=== PATIENT | female | born 1985 | race Caucasian/White ===

== ENCOUNTER 2016-11-02 09:49 | Outpatient (CLI) | payer OTHER ==
[~2016-11-02] VITALS: Ht 160 cm; Wt 70.1 kg
[2016-11-02 10:06] VITALS: Ht 160 cm; Wt 70.1 kg
[2016-11-02 10:07] VITALS: BP 116/63; PULSE 97; RESP 18
--- NOTE | 2016-11-02 12:47 | RADRPT ---
PROCEDURE: Limited OB ultrasound CLINICAL INDICATION: Decreased movement TECHNIQUE: Sonographic evaluation to assess the ANGELICA was performed. Transabdominal imaging of the gravid uterus was performed. COMPARISON: No prior exam is available for comparison. FINDINGS: There is a single live intrauterine with a heart rate of 154 bpm. position is cephalic. The placenta is anterior. The ANGELICA measures 15.1 cm. IMPRESSION: The ANGELICA measures 15.1 cm. RPTAT: HH .Emily Dasilva MD, MD Date Time Electronically viewed and signed by .Emily Dasilva MD, MD on 11/02/2016 12:46 .G/
[2016-11-02] MEDS ORDERED: PRENAT PO (12:57)
--- NOTE | 2016-11-02 15:39 | TRIAGE ---
OB Triage Datetime Report Generated by CPN: 11/02/2016 15:38 Datetime: 11/02/2016 11:43 Comments: MD ARDALAN COLLECTED ROM PLUS COLLECTION Datetime: 11/02/2016 11:42 Vaginal Exam Membrane Status: Intact Pool: Negative Datetime: 11/02/2016 10:30 Maternal Assessment Level of Consciousness: Fully Conscious DTR's/Clonus: DTRs 2+; No Clonus Headache: Denies Blurred Vision: No Respiratory Effort: Unlabored; Regular Rhythm; Equal Expansion Breath Sounds, Left: Clear and Equal Breath Sounds, Right: Clear and Equal Nausea/Vomiting: Denies RUQ Epigastric Pain: Denies Facial Edema: None Fall Risk Assessment History of Falling: (0) No Secondary Diagnosis: (0) No Ambulatory Aid: (0) Bedrest/Nurse Assist IV Therapy: (0) No Gait: (0) Normal/Bedrest/Immobile Mental Status: (0) Oriented to Own Ability Fall Score: 0 Fall Risk Score Definition: No Risk: No action required Datetime: 11/02/2016 10:00 Stage of : OB Triage Assessment Type: Triage Maternal Assessment Level of Consciousness: Fully Conscious DTR's/Clonus: DTRs 2+; No Clonus Headache: Denies Blurred Vision: No Respiratory Effort: Unlabored; Regular Rhythm; Equal Expansion Breath Sounds, Left: Clear and Equal Breath Sounds, Right: Clear and Equal Nausea/Vomiting: Denies RUQ Epigastric Pain: Denies Lower Extremities Edema: None Degree: None Upper Extremities Edema: None Degree: None Facial Edema: None Temperature Route: Axillary Fall Risk Assessment History of Falling: (0) No Secondary Diagnosis: (0) No Ambulatory Aid: (0) Bedrest/Nurse Assist IV Therapy: (0) No Gait: (0) Normal/Bedrest/Immobile Mental Status: (0) Oriented to Own Ability Fall Score: 0 Fall Risk Score Definition: No Risk: No action required Heart Rate Monitor Mode: External US Variability: Moderate 6-25 bpm Accelerations: None Decelerations: None Comments: DOPPLERS PERFORMED AUDIBLE FHR 150'S PRESENT Pain Assessment Pain Scale: 0 Pain Presence: None/Denies Pain Type: N/A Datetime: 11/02/2016 09:55 Time of Arrival: 11/02/2016 09:44 EGA: 21.6 Arrived By: Ambulatory Arrived From: Home Chief Complaint: DECREASED FM Movement: Absent Contractions: Denies/Absent Rupture of Membranes: Denies Vaginal Bleeding: None Vaginal Discharge: Denies Recent Sexual Intercouse: Denies Abdominal Trauma: Not Applicable Patient Complaints: None Time Provider Notified: 11/02/2016 11:20 Provider Notified: DR. YEH Initial Plan: NST , ROM PLUS, ANGELICA
== END 2016-11-02 14:57 | disposition home or self-care (01) ==
LOC: OBT 09:49 → L-D 09:50 → OBT 14:57
PROVIDERS: ATTEND Obstetrics & Gynecology
DX: O36.8120 Decreased fetal movements, second trimester, not applicable or unspecified (principal); Z3A.21 21 weeks gestation of pregnancy
CPT/HCPCS: 76815; 84112; Z7500; G0463

== ENCOUNTER 2017-02-09 22:28 | Outpatient (CLI) | payer OTHER ==
--- NOTE | 2016-11-02 15:46 | QN ---
Documentation Comment 31 years old with IUP at 21 weeks and 6 days here for decreased movement. she denies vaginal bleeding or contractions, she reports had some small amount of leaking. GA: A&O, NAD Abdomen: soft, non tender, Fundal height consistent with GA Extremities: No calf tenderness, no cord palpable SSE: No pooling with valsalva maneuver. Negative ROM test PROCEDURE: Limited OB ultrasound CLINICAL INDICATION: Decreased movement TECHNIQUE: Sonographic evaluation to assess the ANGELICA was performed. Transabdominal imaging of the gravid uterus was performed. COMPARISON: No prior exam is available for comparison. FINDINGS: There is a single live intrauterine with a heart rate of 154 bpm. position is cephalic. The placenta is anterior. The ANGELICA measures 15.1 cm. IMPRESSION: The ANGELICA measures 15.1 cm. RPTAT: HH Assessment: 1. IUP at 21 weeks and 6 days Doing well No evidence of PTL or PPROM Patient reassured. PTL precaution Follow up with her OB clinic in 2-3 days RT to L&D PRN any other symptoms SORAIDA CÁRDENAS MD Nov 02, 2016 15:45
[~2017-02-09] VITALS: Ht 160 cm; Wt 78.0 kg
[~2017-02-09 22:28] MED LIST: PRENAT PO
[2017-02-09 22:33] VITALS: Ht 160 cm; Wt 78.0 kg
[2017-02-09 22:50] VITALS: BP 112/61; PULSE 86; RESP 18
[2017-02-10 00:13] LABS: ADD UMIC YES; UR BILIRUBIN (Dip) NEGATIVE (NEGATIVE); UR BLOOD (Dip) NEGATIVE (NEGATIVE); UR CLARITY CLEAR (CLEAR); UR COLOR LT. YELLOW (YELLOW); UR GLUCOSE (Dip) NEGATIVE (NEGATIVE); UR KETONES (Dip) NEGATIVE (NEGATIVE); UR LEUKOCYTE ESTERASE (Dip) 1+ (NEGATIVE); UR NITRITE (Dip) NEGATIVE (NEGATIVE); UR TOTAL PROTEIN (Dip) NEGATIVE (NEGATIVE); UR UROBILINOGEN (Dip) 0.2 E.U./dL (0.1-1.0)
--- NOTE | 2017-02-10 00:28 | RADRPT ---
PROCEDURE: Obstetrical ultrasound, limited. CLINICAL INDICATION: Pelvic pain. TECHNIQUE: Multiple sonographic images of the pelvis were obtained using transabdominal technique . Images were obtained with lovelace scale and color Doppler. Endovaginal evaluation the cervix was al so performed. The images were reviewed on a PACS workstation. COMPARISON: 11/02/2016. FINDINGS: There is a single living intrauterine gestation with the fetus in a vertex presentation. hear t tones of 131 beats per minute are identified. The placenta is anterior in location, grade 2. The cervix is closed measuring 3.7 cm. There is no evidence of placenta previa or abruption. Measurements were made in order to determine age. The results are as follows: BPD =8.94 cm HC =33.19 cm AC =31.03 cm FL =7.03 cm. Estimated gestational age of approximately 36 weeks and 2 days. The estimated date of delivery is 03/07/2017. The EFW = 2740 +/- 411 grams. Estimated weight percentage equals 41.9%. IMPRESSION: Single viable intrauterine gestation of approximately 36 weeks and 2 days, with an ultrasound UZIEL of 03/07/2017. .Ramiro Hameed MD, MD Date Time Electronically viewed and signed by .Ramiro Hameed MD, MD on 02/10/2017 00:28 .T/
[2017-02-10 00:56] LABS: UR BACTERIA MODERATE; UR SQUAMOUS EPITHELIAL CELL FEW; URINE RBCS 0-2 /HPF (0)
--- NOTE | 2017-02-10 02:28 | TRIAGE ---
OB Triage Datetime Report Generated by CPN: 02/10/2017 02:27 Datetime: 02/10/2017 02:00 Stage of : OB Triage Labor Evaluation Frequency: 2-8 Monitor Mode: External Duration (sec)2399: 60-80 Quality: Mild Pattern: Normal: <= 5 Contractions in 10 Minutes Resting Tone [place]: Relaxed Heart Rate FHR Baseline Rate: 135 Monitor Mode: External US Variability: Moderate 6-25 bpm Accelerations: 15X15 Decelerations: None Category: Category I Datetime: 02/10/2017 01:10 Stage of : OB Triage Labor Evaluation Frequency: 2.5-4 Monitor Mode: External Duration (sec)2399: 60-80 Quality: Mild Pattern: Normal: <= 5 Contractions in 10 Minutes Resting Tone [place]: Relaxed Heart Rate FHR Baseline Rate: 135 Monitor Mode: External US Variability: Moderate 6-25 bpm Accelerations: 15X15 Decelerations: None Category: Category I Datetime: 02/10/2017 00:10 Stage of : OB Triage Labor Evaluation Frequency: 2-5.5 Monitor Mode: External Duration (sec)2399: 60-80 Quality: Mild Pattern: Normal: <= 5 Contractions in 10 Minutes Resting Tone [place]: Relaxed Heart Rate FHR Baseline Rate: 135 Monitor Mode: External US Variability: Moderate 6-25 bpm Accelerations: 15X15 Decelerations: None Category: Category I Pain Assessment Pain Scale: 7 Pain Presence: Constant Pain Type: Cramping; Pressure Pain Location: Abdomen; Perineum Pain Goal: 5 Pain Relief Measures: Comfort Measures Datetime: 02/09/2017 23:10 Stage of : OB Triage Temperature Route: Oral Labor Evaluation Frequency: 3-5 Monitor Mode: External Duration (sec)2399: 60-120 Quality: Moderate Pattern: Normal: <= 5 Contractions in 10 Minutes Resting Tone [place]: Relaxed Heart Rate FHR Baseline Rate: 130 Monitor Mode: External US Variability: Moderate 6-25 bpm Accelerations: 15X15 Decelerations: None Category: Category I Pain Assessment Pain Scale: 7 Pain Presence: Constant Pain Type: Cramping; Pressure Pain Location: Abdomen; Perineum Pain Goal: 5 Pain Relief Measures: Comfort Measures Datetime: 02/09/2017 23:00 Vaginal Exam Dilatation (cms): 0.0 Effacement (%): 70 Station: -2 Exam By: ISA Vaginal Bleeding: None Cervix, Consistency: Moderate Cervix, Position: Posterior Datetime: 02/09/2017 22:48 Assessment Type: Triage Maternal Assessment Level of Consciousness: Fully Conscious DTR's/Clonus: DTRs 2+; No Clonus Headache: Denies Blurred Vision: No Respiratory Effort: Unlabored; Regular Rhythm; Equal Expansion Breath Sounds, Left: Clear and Equal Breath Sounds, Right: Clear and Equal Nausea/Vomiting: Denies RUQ Epigastric Pain: Denies Lower Extremities Edema: None Upper Extremities Edema: None Facial Edema: None Fall Risk Assessment History of Falling: (0) No Secondary Diagnosis: (0) No Ambulatory Aid: (0) Bedrest/Nurse Assist IV Therapy: (0) No Gait: (0) Normal/Bedrest/Immobile Mental Status: (0) Oriented to Own Ability Fall Score: 0 Fall Risk Score Definition: No Risk: No action required Datetime: 02/09/2017 22:35 Time of Arrival: 02/09/2017 22:20 EGA: 36.0 Arrived By: Wheelchair Arrived From: Home Chief Complaint: VAGINAL PRESSURE ALL DAY AND PAIN TODAY Movement: Present Contractions: Irregular Rupture of Membranes: Denies Vaginal Bleeding: None Vaginal Discharge: Denies Recent Sexual Intercouse: Denies Abdominal Trauma: Not Applicable Patient Complaints: None Additional Patient Complaints: IN DR'S OFFICE YESTERDAY WITH VAG. PRESSURE, BUT NO PAIN Time Provider Notified: 02/09/2017 22:55 Provider Notified: CHRIS Initial Plan: EFM Datetime: 11/02/2016 10:30 Fall Score: 0 Fall Risk Score Definition: No Risk: No action required Datetime: 11/02/2016 10:00 Fall Score: 0 Fall Risk Score Definition: No Risk: No action required Datetime: 11/02/2016 09:55 EGA: 21.6
--- NOTE | 2017-02-10 06:48 | PN ---
Triage Information Date/Time 02/10/17 0150 Weeks of Gestation 36w : 2 Para: 0 Diabetes: none Hypertention: none Additional information vaginal pressure all day become worse 2129 Objective EFM u.c 3-5min VE closed 70% -2 intact initial re exam 3hrs later no change by same nurse Vital Signs Date Time Temp Pulse Resp B/P Pulse Ox O2 Delivery O2 Flow Rate FiO2 02/09/17 22:50 98.4 86 18 112/61 Room Air Heart Rate: 130's Contractions: < 5 Minutes Apart Results/Medications Results 24 hrs Laboratory Tests Test 02/09/17 22:40 Urine Color LT. YELLOW Urine Clarity CLEAR Urine pH 7.0 Urine Specific [place] 1.010 Urine Ketones NEGATIVE Urine Nitrite NEGATIVE Urine Bilirubin NEGATIVE Urine Urobilinogen 0.2 E.U./dL Urine Leukocyte Esterase 1+ H Urine Microscopic RBC 0-2 Urine Microscopic WBC 2-5 Urine Squamous Epithelial Cells FEW Urine Bacteria MODERATE Urine Hemoglobin NEGATIVE Urine Glucose NEGATIVE Urine Total Protein NEGATIVE Imaging Results cvl 3,7 efw 2740gm Assessment/Plan IUP 36w NIL Plan d/s home with routine labor instructions REKHA PEREZ MD Feb 10, 2017 06:47
== END 2017-02-10 02:13 | disposition home or self-care (01) ==
LOC: L-D 22:28 → OBT 22:28
PROVIDERS: ATTEND Obstetrics & Gynecology
DX: O26.893 Other specified pregnancy related conditions, third trimester (principal); R10.2 Pelvic and perineal pain; Z3A.36 36 weeks gestation of pregnancy
CPT/HCPCS: 76815; 76817; 81001; Z7500; G0463

== ENCOUNTER 2017-02-26 21:12 | Inpatient (IN) | payer OTHER ==
[~2017-02-26] VITALS: Ht 160 cm; Wt 79.3 kg
[2017-02-26 21:44] VITALS: BP 112/65; PULSE 93; RESP 18; Ht 160 cm; Wt 79.3 kg
[2017-02-26] MEDS ORDERED: LIDOCAINE 1% (MPF) 30 ML INJ INJ PRN (23:00)
[2017-02-26] MEDS ORDERED: CARBOPROST 250 MCG INJ IM PRN (23:00)
[2017-02-26] MEDS ORDERED: IBUPROFEN 600 MG TAB PO PRN (23:00)
[2017-02-26] MEDS ORDERED: BUTORPHANOL 2 MG INJ IV PRN (23:00)
[2017-02-26] MEDS ORDERED: OXYTOCIN 30 UNITS/LR 500 ML IV SCH ×2 (23:00)
[2017-02-26] MEDS ORDERED: METHYLERGONOVINE 0.2 MG INJ IM PRN (23:00)
[2017-02-26] MEDS ORDERED: OXYTOCIN 30 UNITS/LR 500 ML IV PRN (23:00)
[2017-02-26] MEDS ORDERED: MISOPROSTOL 200 MCG TAB PR PRN (23:00)
--- NOTE | 2017-02-26 23:06 | HP ---
Date/Time of Note Date/Time of Note DATE: 02/26/17 TIME: 23:02 OB - History Hx of Present Free Text/Dictation 31 YO with IUP at 38.3 weeks who presents to L&D for possible ROM and irregular UCs. on her arrival she had 3 late Decelerations on NST. her ANGELICA is 5.7 cm. Care: Good Care Ultrasounds: Normal mid trimester US Obstetrical Complications: None Medical Complications: None Past Family/Social History * Past Medical, Surgical, Family and Obstetric Histories reviewed from chart. OB Admission Exam Vital Signs Vital Signs Vital Signs Date Time Temp Pulse Resp B/P Pulse Ox O2 Delivery O2 Flow Rate FiO2 02/26/17 21:44 98.3 93 18 112/65 Room Air Physical Exam HEENT: WNL Heart: Rhythm Normal Lungs: Clear, Equal Abdomen: WNL Extremities: Normal Reflexes: Normal Cervical Dilatation: Fingertip OB Assessment/Plan Other Assessment: oligo and possible SROM, although RN did not noticed any pooling on SSE she initially had 3 late decels. NST is reassuring at this time. Other plan: admit for IV hydration and IOL. patient agreed KRISTIN THAKUR MD Feb 26, 2017 23:06
[2017-02-26] MEDS: LACTATED RINGER'S 1,000 ML IV SCH (23:11)
--- NOTE | 2017-02-26 23:27 | RADRPT ---
PROCEDURE: OB ultrasound for biophysical profile CLINICAL INDICATION: . labor. Leaking fluid. TECHNIQUE: Multiple sonographic images of the pelvis were obtained. Transabdominal view of the gr avid uterus are available for review. The images were reviewed on a PACS workstation. COMPARISON: 02/10/2017 FINDINGS: breathing movement = 2/2 tone = 2/2 motion = 2/2 ANGELICA = 0/2 ANGELICA = 5.7 cm Single live intrauterine with cardiac activity. Heart rate equals 152 bpm. IMPRESSION: 1. Single viable intrauterine gestation. 2. Biophysical profile = 6/8. 3. ANGELICA = 5.7 cm. This is likely due to ruptured membranes, given the provided history. RPTAT: HLDM .Elliott Huerta MD, Date Time Electronically viewed and signed by .Elliott Huerta MD, on 02/26/2017 23:27 .M/
[2017-02-27 00:01] LABS: BASOPHILS % 0.2 % (0.0-2.0); EOSINOPHILS # 0.1 10^3/ul (0.0-0.5); EOSINOPHILS % 0.7 % (0.0-7.0); HEMATOCRIT 36.7 % (37.0-47.0); HEMOGLOBIN 11.9 g/dl (12.0-16.0); LYMPHOCYTES # 1.9 10^3/ul (0.8-2.9); LYMPHOCYTES % 19.4 % (15.0-51.0); MEAN CORPUSCULAR HEMOGLOBIN 28.5 pg (29.0-33.0); MEAN CORPUSCULAR HGB CONC 32.4 g/dl (32.0-37.0); MEAN PLATELET VOLUME 10.5 fl (7.4-10.4); MONOCYTE # 0.7 10^3/ul (0.3-0.9); MONOCYTES % 6.6 % (0.0-11.0); NEUTROPHILS % 69.9 % (39.0-77.0); NUCLEATED RED BLOOD CELLS% 0.2 /100WBC (0.0-0.0); PLATELET COUNT 200 10^3/UL (140-415); RED BLOOD COUNT 4.17 10^6/ul (4.20-5.40); RED CELL DISTRIBUTION WIDTH 14.6 % (11.5-14.5)
[2017-02-27 00:19] LABS: INR 0.98
[2017-02-27 00:20] LABS: PARTIAL THROMBOPLASTIN TIME 29.6 Sec (25.0-35.0)
[2017-02-27 00:25] LABS: ADD SCAN DIFF NO
[2017-02-27 00:45] LABS: ADD UMIC YES; UR ASCORBIC ACID NEGATIVE (NEGATIVE); UR BACTERIA FEW /HPF (NONE SEEN); UR BILIRUBIN (Dip) NEGATIVE (NEGATIVE); UR BLOOD (Dip) NEGATIVE (NEGATIVE); UR CLARITY CLEAR (CLEAR); UR COLOR YELLOW (YELLOW); UR GLUCOSE (Dip) NEGATIVE (NEGATIVE); UR KETONES (Dip) NEGATIVE (NEGATIVE); UR LEUKOCYTE ESTERASE (Dip) TRACE Leu/ul (NEGATIVE); UR MUCUS FEW /HPF (NONE SEEN); UR NITRITE (Dip) NEGATIVE (NEGATIVE); UR RBC 1 /HPF (0-5); UR SPECIFIC GRAVITY (Dip) 1.012 (1.003-1.030); UR TOTAL PROTEIN (Dip) NEGATIVE (NEGATIVE); UR UROBILINOGEN (Dip) NEGATIVE (NEGATIVE)
[2017-02-27 00:52] LABS: BARBITURATES Negative (NEGATIVE); BENZODIAZEPINES Negative (NEGATIVE); CANNABINOIDS Negative (NEGATIVE); COCAINE Negative (NEGATIVE); OPIATES Negative (NEGATIVE)
[2017-02-27] MEDS ORDERED: FENTAnyl 2MCG/ML-ROPIV 0.2% 100 ML ONE (02:37)
[2017-02-27] MEDS: LACTATED RINGER'S 1,000 ML IV SCH ×2 (03:15→05:32)
[2017-02-27] MEDS ORDERED: LACTATED RINGER'S 1,000 ML IV PRN (05:00)
[2017-02-27] MEDS ORDERED: MISOPROSTOL 25 MCG CAPSULE PO SCH ×2 (05:00)
[2017-02-27] MEDS ORDERED: OXYTOCIN 30 UNITS/LR 500 ML IV SCH (06:00)
[2017-02-27] MEDS ORDERED: OXYTOCIN 30 UNITS/LR 500 ML IV PRN (06:30)
[2017-02-27] MEDS ORDERED: ONDANSETRON 4 MG INJ IV PRN ×2 (08:00→14:30)
[2017-02-27] MEDS ORDERED: DIPHENHYDRAMINE 50 MG INJ IV PRN (08:00)
[2017-02-27] MEDS ORDERED: NALOXONE (0.4 MG/ML) INJ IV PRN (08:00)
[2017-02-27] MEDS ORDERED: FENTAnyl 2MCG/ML-ROPIV 0.2% 100 ML BAG EPI SCH (08:00)
--- NOTE | 2017-02-27 12:50 | LDN ---
Date/Time of Note Date/Time of Note DATE: 02/27/17 TIME: 12:44 Delivery Summary Normal spontaneous vaginal delivery of a baby boy from OA position shoulders delivered without any difficulties rest of the baby's body followed, cord clamped after stopped pulsation placenta spontaneous expulsion inspected complete blood loss 200 mL vaginal perineal inspection no laceration Weeks of Gestation 38 weeks 4 days Placenta Delivered: Spontaneously Meconium: none Episiotomy: No Anesthesia type: Epidural Estimated blood loss: 200 Sponge & Needle done & correct: Yes All needle counts correct: Yes Any foreign bodies felt in the: No Problems: Infant Delivery Information Sex Sex: male Apgars 1 Minute: 9 5 Minute: 9 Suctioning Nose & mouth suctioned at kun: Yes Delee suction performed: No Umbilical Cord Umbilical cord with: 3 Vessels Cord presentations: nuchal cord Nuchal cord present X: 1 Cord Blood was obtained: Yes CURTIS YEH MD Feb 27, 2017 12:50
[2017-02-27] MEDS ORDERED: LANOLIN 7 GM TUBE TOP PRN (14:30)
[2017-02-27] MEDS ORDERED: ACETAMINOPHEN 325 MG TAB PO PRN (14:30)
[2017-02-27] MEDS ORDERED: OXYCODONE/ASPIRIN (4.88/325) TAB PO PRN ×2 (14:30)
[2017-02-27] MEDS ORDERED: ACETAMINOPHEN/CODEINE #3 TAB PO PRN ×2 (14:30)
[2017-02-27] MEDS ORDERED: DIBUCAINE 1% 30 GM OINT PR PRN (14:30)
[2017-02-27] MEDS ORDERED: BENZOCAINE 20% 56 ML SPRAY TOP PRN (14:30)
[2017-02-27] MEDS ORDERED: WITCH HAZEL/GLYCERIN PAD PR PRN (14:30)
[2017-02-27 14:40] VITALS: BP 113/58; PULSE 74; RESP 19
[2017-02-27 15:10] VITALS: BP 131/65; PULSE 80; RESP 20
[2017-02-27 16:00] VITALS: BP 113/58; PULSE 74; RESP 20
[2017-02-27] MEDS: IBUPROFEN 600 MG TAB PO SCH ×2 (17:59→23:17)
[2017-02-27] MEDS: OXYTOCIN 30 UNITS/LR 500 ML IV SCH ×2 (18:07→18:16)
[2017-02-27 19:30] VITALS: BP 116/60; PULSE 70; RESP 18
[2017-02-27] MEDS: SENNA/DOCUSATE NA (8.6MG/50MG) TAB PO SCH (20:41)
[2017-02-28 04:00] VITALS: BP 117/62; PULSE 89; RESP 20
[2017-02-28] MEDS: IBUPROFEN 600 MG TAB PO SCH ×3 (06:06→17:20)
[2017-02-28 06:56] LABS: ADD SCAN DIFF NO
[2017-02-28 07:03] LABS: BASOPHILS % 0.3 % (0.0-2.0); EOSINOPHILS % 0.4 % (0.0-7.0); HEMOGLOBIN 10.8 g/dl (12.0-16.0); LYMPHOCYTES # 1.7 10^3/ul (0.8-2.9); LYMPHOCYTES % 16.4 % (15.0-51.0); MEAN CORPUSCULAR HGB CONC 32.7 g/dl (32.0-37.0); MEAN CORPUSCULAR VOLUME 88.7 fl (82.0-101.0); MEAN PLATELET VOLUME 10.8 fl (7.4-10.4); MONOCYTE # 0.7 10^3/ul (0.3-0.9); MONOCYTES % 6.5 % (0.0-11.0); NEUTROPHIL # 7.7 10^3/ul (1.6-7.5); NEUTROPHILS % 75.1 % (39.0-77.0); PLATELET COUNT 183 10^3/UL (140-415); RED BLOOD COUNT 3.72 10^6/ul (4.20-5.40); RED CELL DISTRIBUTION WIDTH 14.5 % (11.5-14.5); WHITE BLOOD COUNT 10.3 10^3/ul (4.8-10.8)
[2017-02-28 09:01] VITALS: BP 118/65; PULSE 96; RESP 20
[2017-02-28] MEDS: SENNA/DOCUSATE NA (8.6MG/50MG) TAB PO SCH ×2 (09:20→21:04)
--- NOTE | 2017-02-28 13:19 | QN ---
Documentation Comment Post normal vaginal delivery day 1 Afebrile vitals are stable abdomen soft uterus firm lochia moderate extremities normal ambulation encouraged CURTIS YEH MD Feb 28, 2017 13:19
[2017-02-28 16:00] VITALS: BP 122/71; PULSE 69; RESP 2
[2017-02-28 19:40] VITALS: BP 114/58; PULSE 76; RESP 18
[2017-03-01 03:55] VITALS: BP 115/56; PULSE 70; RESP 18
[2017-03-01] MEDS: IBUPROFEN 600 MG TAB PO SCH ×3 (05:52→13:12)
[2017-03-01 08:00] VITALS: BP 109/58; PULSE 76; RESP 19
[2017-03-01] MEDS ORDERED: MEASLES,MUMPS,RUBELLA VACCINE INJ SC* ONE (09:00)
[2017-03-01] MEDS: SENNA/DOCUSATE NA (8.6MG/50MG) TAB PO SCH (10:39)
--- NOTE | 2017-03-01 14:16 | PN ---
Date/Time of Note Date/Time of Note DATE: 03/01/17 TIME: 14:11 OB Subjective Subjective Subjective Denies any complaint, Denies any SOB, chest pain or dizziness, or lightheadadness. Vaginal bleeding in the amount of menses. Breast feeding. OB Objective Objective Objective GA: A&O,NAD Abdomen: Soft,non tender, fundus firm at the level of about 2 cm above the umbilicus. Extremities. No calf tenderness, no cord palpable. No edema Breasts: No breast engorgement, no fissure, no edema. Hematology - 72 Hrs Test 02/26/17 23:41 02/28/17 06:25 White Blood Count 10.010^3/ul (4.8-10.8) 10.310^3/ul (4.8-10.8) Red Blood Count 4.1710^6/ul (4.20-5.40) L 3.7210^6/ul (4.20-5.40) L Hemoglobin 11.9g/dl (12.0-16.0) L 10.8g/dl (12.0-16.0) L Hematocrit 36.7% (37.0-47.0) L 33.0% (37.0-47.0) L Mean Corpuscular Volume 88.0fl (82.0-101.0) 88.7fl (82.0-101.0) Mean Corpuscular Hemoglobin 28.5pg (29.0-33.0) L 29.0pg (29.0-33.0) Mean Corpuscular Hemoglobin Concent 32.4g/dl (32.0-37.0) 32.7g/dl (32.0-37.0) Red Cell Distribution Width 14.6% (11.5-14.5) H 14.5% (11.5-14.5) Platelet Count 58239^3/UL (140-415) 86860^3/UL (140-415) Mean Platelet Volume 10.5fl (7.4-10.4) #H 10.8fl (7.4-10.4) H Neutrophils % 69.9% (39.0-77.0) 75.1% (39.0-77.0) Lymphocytes % 19.4% (15.0-51.0) 16.4% (15.0-51.0) Monocytes % 6.6% (0.0-11.0) 6.5% (0.0-11.0) Eosinophils % 0.7% (0.0-7.0) 0.4% (0.0-7.0) Basophils % 0.2% (0.0-2.0) 0.3% (0.0-2.0) Nucleated Red Blood Cells % 0.2/100WBC (0.0-0.0) H 0.0/100WBC (0.0-0.0) Neutrophils # 7.010^3/ul (1.6-7.5) 7.710^3/ul (1.6-7.5) H Lymphocytes # 1.910^3/ul (0.8-2.9) 1.710^3/ul (0.8-2.9) Monocytes # 0.710^3/ul (0.3-0.9) 0.710^3/ul (0.3-0.9) Eosinophils # 0.110^3/ul (0.0-0.5) 0.010^3/ul (0.0-0.5) Basophils # 0.010^3/ul (0.0-0.1) 0.010^3/ul (0.0-0.1) Nucleated Red Blood Cells # 0.010^3/ul (0.0-0.0) 0.010^3/ul (0.0-0.0) OB Assessment/Plan Other Assessment: PPD #2 Mild anemia Asymptomatic. DC home Follow up at 6 weeks post . Continue PNV. SORAIDA CÁRDENAS MD Mar 01, 2017 14:16
--- NOTE | 2017-03-01 14:20 | DS ---
Date/Time of Note Date/Time of Note DATE: 03/01/17 TIME: 14:17 Discharge Summary Admission/Discharge Info Admit Date/Time Feb 26, 2017 at 22:24 Discharge Date/Time March 01, 2017 Patient Condition: Good Procedures Induction of labor for borderline low amniotic fluid as well as nonreassuring heart tracing at 38 weeks and 3 days Hx of Present Illness 31-year-old with IUP at 38 weeks and 3 days presented to triage with complaint of irregular uterine contractions and questionable rupture membrane. No clear evidence of R OM seen however. ANGELICA noted to be borderline low. She also noted to have irregular contractions with nonreassuring heart tracing. She underwent induction of labor. She had uncomplicated intrapartum and course. EBL 200 cc. She delivered a baby boy Apgars 9 and 9. Three-vessel cord. course was also uncomplicated. On day #2 patient was noted to be stable enough to be discharged home. She was ambulating. Her vitals were stable. Vaginal bleeding decrease. Was breast- feeding. Had no depressive symptoms or any other complaints. Hospital Course Non-complicated Home Meds Reported Medications Multivit/Min/Fol Ac/Iron/Pren* ( S*) 1 Tab Tab, 1 TAB PO DAILY, TAB 11/02/16 Follow-up Plan In 6 weeks for care Primary Care Provider [facility] Time spent on discharge: > 30 minutes SORAIDA CÁRDENAS MD Mar 01, 2017 14:20
== END 2017-03-01 15:00 | disposition home or self-care (01) | DRG 775 ==
LOC: OBT 21:12 → L-D 21:13 → OBT 22:24 → L-D 22:24 → PP1 02-27 14:41
PROVIDERS: ADMIT Obstetrics & Gynecology; ATTEND Obstetrics & Gynecology
PROC: 10E0XZZ Delivery of Products of Conception, External Approach (ICD-10-PCS; principal; 2017-02-27)
DX: O41.03X0 Oligohydramnios, third trimester, not applicable or unspecified (principal); O76 Abnormality in fetal heart rate and rhythm complicating labor and delivery; O69.81X0 Labor and delivery complicated by cord around neck, without compression, not applicable or unspecified; O90.81 Anemia of the puerperium; D64.9 Anemia, unspecified; Z3A.38 38 weeks gestation of pregnancy; Z37.0 Single live birth
CPT/HCPCS: 36415; 62319; 76818; 80307; 81001; 84112; 85025; 85610; 85730; 86592; 86900; 86901; 87086; 87340; 99464; G0463; J2590; J3010; J7120